=== PATIENT | male | born 1965 | race Caucasian/White ===

== ENCOUNTER 2017-10-02 13:39 | Emergency (ER) | payer OTHER ==
[~2017-10-02] VITALS: Ht 185.4 cm; Wt 85.0 kg
[~2017-10-02 13:39] MED LIST: ADVI200C9 PO; SUMA100T2 PO
[2017-10-02 13:45] VITALS: BP 154/97; PULSE 75; RESP 16; TEMP 97.9; O2SAT 97
[2017-10-02] MEDS ORDERED: traMADol HCL 50 MG TAB PO ONE (14:00)
[2017-10-02] MEDS ORDERED: CLINDAMYCIN PHOS 300 MG/2 ML VIAL IM ONE (14:00)
[2017-10-02] MEDS ORDERED: TRAM50 PO (14:03)
[2017-10-02] MEDS ORDERED: BACT800T5 PO (14:03)
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
[2017-10-02] MEDS ORDERED: CLINDAMYCIN PHOS 600 MG/4 ML VIAL IM ONE (14:15)
[2017-10-02 15:00] VITALS: BP 143/76
== END 2017-10-02 15:02 | disposition home or self-care (01) ==
LOC: PHED 13:39
DX: L03.116 Cellulitis of left lower limb (principal)
CPT/HCPCS: 96372